=== PATIENT | male | born 1990 | race Caucasian/White ===

== ENCOUNTER 2019-05-24 19:18 | Emergency (ER) | payer MEDICAID, OTHER ==
[~2019-05-24] VITALS: Ht 177.8 cm; Wt 82.0 kg
[2019-05-24 19:27] VITALS: BP 144/96
== END 2019-05-24 21:59 | disposition home or self-care (01) ==
LOC: ER 19:19
DX: H53.2 Diplopia (principal); H53.8 Other visual disturbances
CPT/HCPCS: 99282

== ENCOUNTER 2023-10-15 19:59 | Emergency (ER) | payer MEDICAID ==
[~2023-10-15] VITALS: Ht 177.8 cm; Wt 81.8 kg
[2023-10-15 20:01] VITALS: BP 154/92; PULSE 113; RESP 16; TEMP 98.9; O2SAT 98
[2023-10-15] MEDS ORDERED: AMOX-117 PO (21:45)
[2023-10-15] MEDS ORDERED: PRED20TA PO (21:45)
== END 2023-10-15 21:53 | disposition home or self-care (01) ==
LOC: ER 19:59
DX: J40 Bronchitis, not specified as acute or chronic (principal); R05.8 Other specified cough
CPT/HCPCS: 99283